=== PATIENT | male | born 1970 | race Hispanic/Latino ===

== ENCOUNTER → 2021-01-15 | Outpatient (RCR) | payer OTHER | LOC: PT 01-08 15:58 | PROVIDERS: ATTEND Specialist | DX: M75.102 Unspecified rotator cuff tear or rupture of left shoulder, not specified as traumatic (principal) ==

== ENCOUNTER → 2021-02-14 | Outpatient (RCR) | payer OTHER | LOC: PT 01-17 16:51 | PROVIDERS: ATTEND Specialist | DX: M75.102 Unspecified rotator cuff tear or rupture of left shoulder, not specified as traumatic (principal) ==

== ENCOUNTER 2021-03-12 17:00 | Outpatient (RCR) | payer OTHER | END 2021-03-17 | LOC: PT 17:00 | PROVIDERS: ATTEND Specialist | DX: M75.102 Unspecified rotator cuff tear or rupture of left shoulder, not specified as traumatic (principal) ==